=== PATIENT | female | born 1965 | race Caucasian/White ===

== ENCOUNTER → 2020-01-22 | Outpatient (CLI) | payer OTHER ==
--- NOTE | 2020-01-22 18:22 | RAD ---
EXAM: AP, oblique and lateral views left knee DATE: 01/22/2020 5:51 PM INDICATION: KNEE INJURY, LEFT KNEE PAIN / Spl. Instructions: / History: COMPARISON: No Prior FINDINGS: No evidence of acute fracture or dislocation. No joint effusion. Joint spaces are preserved without significant degenerative/proliferative change. IMPRESSION: No evidence of acute fracture or dislocation. Electronically signed by: Benjamin Montero MD (01/22/2020 6:19 PM) [facility]
== END | disposition home or self-care (01) ==
LOC: RAD 17:38
PROVIDERS: ATTEND Family Medicine
DX: S89.92XD Unspecified injury of left lower leg, subsequent encounter (principal); X58.XXXD Exposure to other specified factors, subsequent encounter
CPT/HCPCS: 73562

== ENCOUNTER → 2020-03-17 | Outpatient (CLI) | payer OTHER ==
--- NOTE | 2020-03-17 16:49 | RAD ---
EXAM: KNEE LEFT 2V 03/17/2020 12:00 AM CLINICAL INDICATION:Follow-up nondisplaced fibular head fracture. COMPARISON:Left knee radiograph 01/22/2020 TECHNIQUE:An MRI left knee 02/11/2020 FINDINGS:The nondisplaced fibular head fracture seen on prior MRI is not well demonstrated by radiograph. There is no acute or healing fracture visualized. Mild medial compartment narrowing. Tiny tricompartmental osteophytes. No joint effusion or soft tissue abnormality. IMPRESSION:The fibular fracture on prior MRI is not well visualized by radiograph. No new abnormality. Electronically signed by: Alison Carmichael MD (03/17/2020 4:46 PM) [id number]
== END | disposition home or self-care (01) ==
LOC: DXRAD 15:24
PROVIDERS: ATTEND Family Medicine
DX: S82.832A Other fracture of upper and lower end of left fibula, initial encounter for closed fracture (principal); M25.762 Osteophyte, left knee; X58.XXXA Exposure to other specified factors, initial encounter; Y93.89 Activity, other specified; Y92.89 Other specified places as the place of occurrence of the external cause; Y99.8 Other external cause status
CPT/HCPCS: 73560